=== PATIENT | female | born 1960 | race Hispanic/Latino ===

== ENCOUNTER 2018-05-28 07:08 | Day surgery (SDC) | payer BC ==
[2018-05-28] MEDS ORDERED: Propofol 10 mg/ml Inj (20 ML) ONE (08:01)
[2018-05-28] MEDS ORDERED: Lidocaine 1% Inj (20ml) ONE (08:02)
[2018-05-28] MEDS ORDERED: Sodium Chloride 0.9% 1,000 ML IV SCH (08:45)
[2018-05-28 09:42] VITALS: RESP 16; TEMP 98; O2SAT 100
[2018-05-28 09:51] VITALS: BP 126/86; PULSE 62
== END 2018-05-28 10:11 | disposition home or self-care (01) ==
LOC: ENDO 07:08
PROVIDERS: ATTEND Specialist
DX: Z12.11 Encounter for screening for malignant neoplasm of colon (principal); K64.8 Other hemorrhoids; K64.4 Residual hemorrhoidal skin tags
CPT/HCPCS: 45378; J2704; J7030